=== PATIENT | male | born 2000 | race Caucasian/White ===

== ENCOUNTER 2018-06-03 23:34 | Emergency (ER) | payer OTHER ==
--- NOTE | 2018-06-04 00:02 | EDPHY ---
H & P Source: Patient - Personal History Current Tetanus Diphtheria and Acellular Pertussis (TDAP): Yes - Medical/Surgical History Hx Asthma: No Hx Chronic Respiratory Disease: No Hx Diabetes: No Hx Cardiac Disease: No Hx Renal Disease: No Hx Cirrhosis: No Hx Alcoholism: No Hx HIV/AIDS: No Hx Splenectomy or Spleen Trauma: No Other PMH: SX NOSE 2014 - Social History Smoking Status: Never smoked Time Seen by Provider: 06/04/18 00:02 HPI/ROS: HPI CHIEF COMPLAINT: Fall, head injury, facial trauma HISTORY OF PRESENT ILLNESS: 17-year-old male, otherwise healthy, presents emergency room after states he did a back flip in his dorm room and did not make it all the way around slipped, fell on his face. Striking his nose and right forehead. Complains of a headache. Mainly frontal. Additionally complains of nasal bridge pain, additionally right shoulder pain. Additionally he has an intraoral upper lip laceration. Denies neck pain, denies chest pain or shortness of breath. Past Medical History: Denies significant medical history Past Surgical History: Denies significant surgical history Social History: Denies drugs alcohol tobacco. [employer] student. Family History: Noncontributory ROS REVIEW OF SYSTEMS: 10 Systems were reviewed and negative with the exception of the elements mentioned in the history of present illness. Exam Constitutional appears well nontoxic no acute distress, triage nursing summary reviewed, vital signs reviewed, awake/alert. Eyes normal conjunctivae and sclera, EOMI, PERRLA. HENT face: Nasal bridge is swollen, no septal hematoma on exam, midface stable , right forehead shows a right forehead hematoma, abrasion over right eyebrow, intraorally there is a right upper lip laceration. moist mucus membranes, no epistaxis, neck supple/ no meningismus, no raccoon eyes. Respiratory clear to auscultation bilaterally, normal breath sounds, no respiratory distress, no wheezing. Cardiovascular rate normal, regular rhythm, no murmur, no edema, distal pulses normal. Gastrointestinal soft, non-tender, no rebound, no guarding, normal bowel sounds, no distension, no pulsatile mass. Genitourinary no CVA tenderness. Musculoskeletal no midline vertebral tenderness, full range of motion, no calf swelling, no tenderness of extremities, no meningismus, good pulses, neurovascularly intact. Skin pink, warm, & dry, no rash, skin atraumatic. Neurologic awake, alert and oriented x 3, AAOx3, moves all 4 extremities equally, motor intact, sensory intact, CN II-XII intact, normal cerebellar, normal vision, normal speech. Psychiatric normal mood/affect. Heme/Lymph/Immune no lymphadenopathy. Differential Diagnosis: Includes but is not limited to in a particular order closed-head injury, intracranial bleed, skull fracture, facial contusion, intraoral lip laceration, nasal bone fracture, right shoulder injury Medical Decision Making: Plan for this patient CT scan head without contrast, CT maxillofacial without contrast for trauma, right shoulder x-ray. Additionally patient need his intraoral lip laceration repaired. Dentition intact. Re-evaluation: CT scan head without contrast negative for acute traumatic injury or bleed. CT maxillofacial shows a nasal bone fracture. Called to me by Dr. Edwards. X-ray of the right shoulder reviewed by myself. Negative for acute traumatic injury Given the patient's nasal bone fracture will refer him to ENT. Additionally due to the right anterior shoulder pain negative x-ray will refer him to Orthopedics. Sling provided for shoulder strain. Follow up with Orthopedics. (Joshua Engle) Constitutional: Initial Vital Signs Temperature (C) 36.7 C 06/03/18 23:38 Heart Rate 95 06/03/18 23:38 Respiratory Rate 16 06/03/18 23:38 Blood Pressure 132/90 H 06/03/18 23:38 O2 Sat (%) 98 06/03/18 23:38 O2 Delivery Mode Room Air Allergies/Adverse Reactions: No Known Allergies Allergy (Unverified 06/03/18 23:42) Home Medications: Medication Instructions Recorded MINOCYCLINE HCL 06/03/18 Medical Decision Making Procedures: My involvement the care this patient is solely for procedure. Please see the note of the attending physician for all other aspects of care. PROCEDURE: Laceration repair Consent: Verbal Location: Right labial mucosa Length of repair: 2 cm Complexity: Simple Layer involvement: Single Anesthesia: Local. 0.5% Marcaine without epinephrine. 5 mL Irrigation: Extensive Debridement: None Procedure description: Following good anesthesia, the wound was copiously irrigated. Wound bed was explored with a sterile glove, and there is no foreign body noted. No muscular layer injury Wound borders were approximated well with good hemostasis. Tolerated well without complication. Suture/Staple material: 5-0 fast-absorbing gut. Two simple interrupted sutures Wound care: Routine as discussed Suture/Staple removal: No removal necessary (Santos Canseco) Departure - Departure Disposition: Home, Routine, Self-Care Clinical Impression: Nasal bone fracture Qualifiers: Encounter type: initial encounter Fracture type: closed Qualified Code(s): S02.2XXA - Fracture of nasal bones, initial encounter for closed fracture Strain of shoulder, right Qualifiers: Encounter type: initial encounter Qualified Code(s): S46.911A - Strain of unspecified muscle, fascia and tendon at shoulder and upper arm level, right arm , initial encounter Condition: Good Instructions: Care For Your Stitches (ED), Nasal Fracture (ED), Laceration (ED) , Rotator Cuff Injury (ED) Referrals: NONE *PRIMARY CARE P,. [Primary Care Provider] - As per Instructions Billie Lyman MD [Medical Doctor] - As per Instructions Andrés Packer MD [Medical Doctor] - As per Instructions
[2018-06-04 02:23] VITALS: BP 134/107
== END 2018-06-04 02:21 | disposition home or self-care (01) ==
PROC: 0CQ4XZZ Repair Buccal Mucosa, External Approach (ICD-10-PCS; principal; 2018-06-03)
DX: S01.512A Laceration without foreign body of oral cavity, initial encounter (principal); S46.911A Strain of unspecified muscle, fascia and tendon at shoulder and upper arm level, right arm, initial encounter; S02.2XXA Fracture of nasal bones, initial encounter for closed fracture; S00.83XA Contusion of other part of head, initial encounter; W18.39XA Other fall on same level, initial encounter; Y93.43 Activity, gymnastics; Y99.8 Other external cause status; Y92.169 Unspecified place in school dormitory as the place of occurrence of the external cause
CPT/HCPCS: A4565